=== PATIENT | female | born 1940 | race Caucasian/White ===

== ENCOUNTER → 2017-01-02 | Outpatient (CLI) | payer MEDICARE, OTHER ==
--- NOTE | ~2017-01-02 | NDGEN ---
PATIENT'S NAME: ROSA SOLANO [facility] AGE: 76 Y [address] ROOM: [place] [id number] LOCATION: [facility] ADMIT DATE: 01/02/2017 [facility] DISCHARGE DATE: FAMILY PHYSICIAN: Nick Fernández MD ATTENDING PHYSICIAN: Nick Fernández PROCEDURE: EMG NERVE CONDUCTION STUDY OF THE BILATERAL LOWER EXTREMITIES. DATE OF PROCEDURE: 01/02/2017 INDICATIONS: For this 76-year-old female patient who has had a nearly 40- pound weight loss over the course of the past year as well as receiving chemotherapy as well as having a history of diabetes. She states that she has had nearly 1 year of weakness in dorsiflexion of the right foot. She also has numbness down the whole lateral aspect of the lower legs from around the level of the knee down to the top and side of the foot. There is comparable difference between the right and the left leg as far as sensation goes. DESCRIPTION: Nerve conduction studies were performed in the peroneal, tibial, and sural sensory nerves. The peroneal nerve on the left side was completely normal with normal motor onset latencies, amplitudes, and nerve conduction velocities. On the right peroneal motor nerve, there was severely reduced nerve conduction velocities associated with a severe drop in amplitude of nearly 50% at the fibular head. Above the fibular head, there was presence of low compound motor action potentials in the right peroneal nerve. Below the fibular head, the compound motor action potentials were of normal volume. The tibial motor nerves on the right and left all showed normal motor onset latencies with nerve conduction velocities. Sensory nerve conduction velocities were all normal and there were normal sensory nerve onset latencies in the bilateral sural nerves. Needle EMG was next performed in the bilateral lower extremities. In the right lower extremity, there was florid fibrillation potentials in the right tibialis anterior muscle with the limb at rest. Motor unit action potentials on voluntary recruitment of the right tibialis anterior muscle were reduced, but the motor unit action potentials appeared to be of normal sizes. Needle EMG of the muscles of the rest of the lower extremities were otherwise well within normal limits with normal recruitment of motor unit action potentials. 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 This is likely related to a demyelinating process locally at the right fibula head causing slowing of PATIENT'S NAME: ROSA SOLANO [facility] AGE: 76 Y [address] ROOM: [place] [id number] LOCATION: [facility] ADMIT DATE: 01/02/2017 [facility]ostics DISCHARGE DATE: FAMILY PHYSICIAN: Nick Fernández MD ATTENDING PHYSICIAN: Nick Fernández conduction into a demyelinating range. This is backed up by finding of fibrillation potentials into the tibialis anterior muscle. The motor unit action potentials on voluntary recruitment were diminished, but were not large suggesting that there may be some improvement of the muscle power with time. The compression of the peroneal nerve at the fibular head is likely caused by the association with rapid weight loss over the past year plus chemotherapy plus acceleration plus the aspect that she has diabetes. RECOMMENDATION: The patient is advised to avoid putting pressure on the area of the fibular head if at all possible, possibly aided by some type of a soft guard to protect the fibula head region on the lateral leg. Finally, I recommended the patient to have an ankle-foot orthotic as she does have significantly weakened dorsiflexion and eversion and extension of the extensor hallucis longus. This is all associated with a peroneal neuropathy at the fibular head. MD ANGEL MACDONALD/mercedes /[id number] dtt: 01/04/17 2120 JENNIFER JASON R. dtd: 01/02/172013
== END | disposition disaster alternative care site (69) ==
LOC: GNEU 14:29
DX: R20.0 Anesthesia of skin (principal); R39.15 Urgency of urination